=== PATIENT | male | born 1990 | race African-American/Black ===

== ENCOUNTER 2018-06-11 11:43 | Emergency (ER) | payer SELFPAY ==
[~2018-06-11] VITALS: Ht 180.3 cm; Wt 100.0 kg
[2018-06-11 14:20] VITALS: BP 122/88
[2018-06-12 05:55] LABS: HIV 1-2 SCREEN 4TH GEN W/RFLX Non Reactive (Non Reactive)
== END 2018-06-11 14:33 | disposition home or self-care (01) ==
LOC: EMS 11:43
DX: S42.92XA Fracture of left shoulder girdle, part unspecified, initial encounter for closed fracture (principal); M25.511 Pain in right shoulder; F12.90 Cannabis use, unspecified, uncomplicated; F17.210 Nicotine dependence, cigarettes, uncomplicated; Y35.813A Legal intervention involving manhandling, suspect injured, initial encounter; Y93.89 Activity, other specified; Y92.89 Other specified places as the place of occurrence of the external cause; Y99.8 Other external cause status
CPT/HCPCS: 86706; 86803; 87340; 87389; 99291